=== PATIENT | female | born 1980 | race Caucasian/White ===

== ENCOUNTER 2023-11-13 17:08 | Emergency (ER) | payer BC ==
[~2023-11-13] VITALS: Ht 162.6 cm; Wt 83.0 kg
[2023-11-13 17:10] VITALS: O2SAT 98
[2023-11-13] MEDS ORDERED: KETOROLAC 30MG/ML VIAL IV ONE (17:45)
[2023-11-13] MEDS: SODIUM CHLORIDE 0.9% 1,000 ML IV ONE (17:58)
[2023-11-13 18:24] LABS: BASOPHILS % 0.5 % (0.0-2.0); EOSINOPHILS % 0.7 % (0.0-5.0); HEMATOCRIT. 37.1 % (36.0-48.0); HEMOGLOBIN. 12.6 g/dL (12.0-16.0); LYMPHOCYTES % 17.6 % (20.0-50.0); MEAN CORPUSCULAR VOLUME 91.1 fL (81.0-99.0); MEAN PLATELET VOLUME 8.3 fl (7.4-10.4); MONOCYTES % 6.2 % (2.0-8.0); PLATELET 336 x1000/uL (130-400); RED BLOOD CELL COUNT 4.07 mill/uL (4.2-5.4); WHITE BLOOD COUNT 11.2 x1000/uL (4.5-11.0)
[2023-11-13 19:12] LABS: ALANINE AMINOTRANSFERASE 19 IU/L (10-49); ALBUMIN 4.1 g/dL (3.2-4.8); ASPARTATE AMINOTRANSFERASE 32 IU/L (<34); BILIRUBIN TOTAL 0.5 mg/dL (0.1-1.0); CALCIUM 8.5 mg/dL (8.7-10.4); CARBON DIOXIDE 20 mEq/L (21-32); CHLORIDE 106 mEq/L (98-107); GLUCOSE 110 mg/dL (70-105); POTASSIUM 4.2 mEq/L (3.5-5.1); PROTEIN TOTAL 7.5 g/dL (6.0-8.3); SODIUM 135 mEq/L (136-145); UREA NITROGEN BLOOD 6 mg/dL (9-23)
[2023-11-13 19:19] VITALS: TEMP 98.7
[2023-11-13 19:47] LABS: B-HCG QUANTITATIVE 3964 mIU/mL (<3)
[2023-11-13 20:09] LABS: INR 0.9; PROTHROMBIN TIME 10.6 sec (9.6-11.0)
[2023-11-13] MEDS ORDERED: IBUP-2028 MT (20:29)
[2023-11-13 21:06] VITALS: BP 134/74; PULSE 68; RESP 20
[2023-11-13] MEDS: KETOROLAC 30MG/ML VIAL IV NR (21:06)
== END 2023-11-13 21:36 | disposition home or self-care (01) ==
LOC: ER 17:08
DX: O03.9 Complete or unspecified spontaneous abortion without complication (principal); Z88.6 Allergy status to analgesic agent
CPT/HCPCS: 99285; 96374; 96361; 76801; 80053; 84702; 85025; 85610; 86850; 86900; 86901; 36415; 76817; J1885; J7030